=== PATIENT | male | born 1985 | race Hispanic/Latino ===

== ENCOUNTER 2024-08-20 01:30 | Emergency (ER) | payer SELFPAY ==
[2024-08-20] MEDS ORDERED: cloNIDine HCL 0.1 MG TAB ONE (02:10)
[2024-08-20] MEDS ORDERED: LOSARTAN POTASSIUM 50 MG TABLET ONE (02:11)
[2024-08-20 02:44] LABS: Absolute Basophils 0.1 K/uL (0-0.5); Absolute Eosinophils 1.3 K/uL (0-0.5); Absolute Lymphocytes (CBC) 2.5 K/uL (0.7-4.9); Absolute Monocytes 0.8 K/uL (0.1-1.3); Absolute Neutrophil 4.6 K/uL (1.8-8.0); Basophils % 1.1 % (0-1.3); Eosinophils % 13.7 % (0-4.4); Hematocrit 50.1 % (39.6-49.0); Hemoglobin 16.9 g/dL (13.6-17.9); MCH 30.5 pg (27.0-35.0); MCHC 33.8 g/dL (32.0-36.0); MCV 90.1 fL (80-100); MPV 8.2 fL (7.6-11.3); Neutrophils % 49.2 % (41.7-73.7); Nucleated Red Blood Cells % 0.1 % (0-0); PT Prothrombin Time 10.9 SECONDS (10-13.0); Platelets 196 thou/uL (152-406); Protime INR 0.95; RBC Red Blood Cell Count 5.56 M/uL (4.33-5.43); Red Cell Distribution Width 13.3 % (12.1-15.2)
[2024-08-20 02:53] LABS: Albumin 3.7 g/dL (3.4-5.0); Anion Gap 7.5 mEq/L (5.0-15.0); Bilirubin Direct 0.2 mg/dL (0-0.2); Bilirubin Indirect, Calculated 0.6 mg/dL (0.2-0.8); Bilirubin Total 0.8 mg/dL (0.2-1.0); Globulin 3.7 g/dL (2.3-3.5); Potassium 3.5 mEq/L (3.5-5.1); Protein, Total 7.4 g/dL (6.4-8.2); Thyroid Stimulating Hormone 3.16 uIU/mL (0.358-3.740); Troponin High Sensitivity 12.2 pg/mL (<58.9)
--- NOTE | 2024-08-20 04:48 | EDPHYS ---
Physician Documentation [facility] Name: Justin Cerrato Age: 38 yrs Sex: Male : 1985 Arrival Date: 08/20/2024 Time: 01:30 Bed 8 Private MD: ED Physician Jeromy Plummer HPI: 08/20 02:04 This 38 yrs old Male presents to ER via Unassigned with complaints of sp4 Toothache. 04:49 38-year-old male presents with complaint of right upper gingival bleeding of sp4 sudden onset. Patient reports no prior medical problems. Appears to have vitiligo. Historical: - Allergies: 02:12 No Known Allergies; ha1 - PMHx: 02:12 None; ha1 - Immunization history:: Adult Immunizations up to date. - Infectious Disease History:: Denies. - Social history:: Smoking status: Patient denies any tobacco usage or history of. - Family history:: not pertinent. ROS: 04:49 Constitutional: Negative for fever, chills, and weight loss, ENT: Positive for right sp4 upper gingival bleeding 04:49 All other systems are negative, Exam: 04:49 Constitutional: This is a well developed, well nourished patient who is awake, alert, sp4 and in no acute distress. Head/Face: Normocephalic, atraumatic. Eyes: Pupils equal round and reactive to light, extra-ocular motions intact. Lids and lashes normal. Conjunctiva and sclera are not injected. Cornea within normal limits. Periorbital areas with no swelling, redness, or edema. ENT: Nares patent. No nasal discharge, no septal abnormalities noted. Tympanic membranes are normal and external auditory canals are clear. Oropharynx with no redness, swelling, or masses, exudates, or evidence of obstruction, uvula midline. Mucous membranes moist. There is right upper gingival bleeding at the site of a chipped tooth # 4 . Neck: Trachea midline, no thyromegaly or masses palpated, and no cervical lymphadenopathy. Supple, full range of motion without nuchal rigidity, or vertebral point tenderness. Chest/axilla: Normal chest wall appearance and motion. Nontender with no deformity. No lesions are appreciated. Cardiovascular: Regular rate and rhythm with a normal S1 and S2. No gallops, murmurs, or rubs. Normal PMI, no JVD. No pulse deficits. Respiratory: Lungs have equal breath sounds bilaterally, clear to auscultation and percussion. No rales, rhonchi or wheezes noted. No increased work of breathing, no retractions or nasal flaring. Abdomen/GI: Soft, with normal bowel sounds. No distension or tympany. No guarding or rebound. No evidence of tenderness throughout. Back: No spinal tenderness. No costovertebral tenderness. Skin: Warm, dry with normal turgor. Normal color with no rashes, no lesions, and no evidence of cellulitis. MS/ Extremity: Pulses equal, no cyanosis. Neurovascular intact. Full, normal range of motion. Neuro: Awake and alert, GCS 15, oriented to person, place, time, and situation. Cranial nerves II-XII grossly intact. Motor strength 5/5 in all extremities. Sensory grossly intact. Psych: Awake, alert, with orientation to person, place and time. Behavior, mood, and affect are within normal limits 04:49 ECG was reviewed by the Attending Physician. EKG at 0 238 normal sinus rhythm rate sp4 65. Overall normal EKG. Vital Signs: 01:57 BP 207 / 132; Pulse 80; Resp 17 S; Temp 98.1(T); Pulse Ox 100% on R/A; Weight 108.86 ha1 kg; Height 5 ft. 5 in. ; 02:30 BP 172 / 108; Pulse 67; Resp 19 S; Pulse Ox 97% on R/A; ha1 02:59 BP 170 / 114; Pulse 67; Resp 17 S; Pulse Ox 98% on R/A; ha1 03:40 BP 129 / 89; Pulse 71; Resp 18; Pulse Ox 95% ; jj7 05:00 BP 121 / 84; Pulse 64; Resp 18 S; Temp 98; Pulse Ox 98% on R/A; ha1 01:57 Body Mass Index 39.94 (108.86 kg, 165.1 cm) ha1 Jeffrey Coma Score: 04:49 Eye Response: spontaneous(4). Motor Response: obeys commands(6). Verbal Response: sp4 oriented(5). Total: 15. MDM: 02:06 Medical Screening Exam initiated sp4 04:52 Differential diagnosis: dental caries, gingivitis, aphthous ulcers, gingivostomatitis. sp4 Data reviewed: vital signs, nurses notes, lab test result(s), EKG. Consideration of Admission/Observation Escalation of care including admission/observation considered. ED course: Blood pressure improved after medical management, patient advised to take losartan 50 mg daily and close follow-up with primary care physician for blood pressure checks and medication adjustment. Advised also visit with a dentist to fix the chipped tooth #4. 08/20 02:04 Order name: Basic Metabolic Panel; Complete Time: 04:36 sp4 08/20 02:04 Order name: CBC with Diff; Complete Time: 04:36 sp4 08/20 02:04 Order name: LFT's; Complete Time: 04:36 sp4 08/20 02:04 Order name: NT PRO-BNP; Complete Time: 04:36 sp4 08/20 02:04 Order name: PT-INR; Complete Time: 04:36 sp4 08/20 02:04 Order name: Troponin HS; Complete Time: 04:36 sp4 08/20 02:05 Order name: TSH; Complete Time: 04:36 sp4 08/20 02:05 Order name: T4 Free; Complete Time: 04:36 sp4 08/20 02:04 Order name: Cardiac monitoring; Complete Time: 02:24 sp4 08/20 02:04 Order name: EKG - Nurse/Tech; Complete Time: 02:58 sp4 08/20 02:04 Order name: IV Saline Lock; Complete Time: 02:24 sp4 08/20 02:04 Order name: Labs collected and sent; Complete Time: 02:24 sp4 08/20 02:04 Order name: O2 Per Protocol; Complete Time: 02:24 sp4 08/20 02:04 Order name: O2 Sat Monitoring; Complete Time: 02:24 sp4 EC:38 Rate is 65 beats/min. Rhythm is regular, Normal Sinus Rhythm. QRS Colo is Normal. GA sp4 interval is normal. QRS interval is normal. QT interval is normal. No Q waves. T waves are Normal. No ST changes noted. Clinical impression: No evidence of ischemia. Interpreted by me. Reviewed by me. Administered Medications: 02:15 Drug: Losartan PO 100 mg PO once Route: PO; jj7 02:15 Drug: cloNIDine PO 0.3 mg PO once Route: PO; jj7 Disposition Summary: 08/20/24 04:47 Discharge Ordered Problem: new sp4 Symptoms: have improved sp4 Condition: Stable sp4 Diagnosis - Essential (primary) hypertension sp4 - Acute hypertensive urgency, gingival bleeding right upper gingiva sp4 Followup: sp4 - With: Wong King DO - When: 10 - 14 days - Reason: Recheck today's complaints Discharge Instructions: - Discharge Summary Sheet sp4 - Hypertension, Adult, [id number] sp4 Forms: - Patient Portal Instructions sp4 Prescriptions: - losartan 50 mg Oral tablet - take 1 tablet ORAL route daily; 90 tablet; Refills: 0, Product Selection sp4 Permitted Signatures: Dispatcher [employer] EDNasra Calvillo RN RN ha1 Axel Orlando RN RN jj7 Jeromy Plummer MD MD sp4 Corrections: (The following items were deleted from the chart) 02:05 02:05 BASIC METABOLIC PANEL+C.LAB.BRZ ordered. EDMS EDMS 02:05 02:05 CBC+H.LAB.BRZ ordered. EDMS EDMS 02:05 02:05 HEPATIC FUNCTION+C.LAB.BRZ ordered. EDMS EDMS 02:05 02:05 PROBNP+C.LAB.BRZ ordered. EDMS EDMS 02:05 02:05 PROTIME (+INR)+COAG.LAB.BRZ ordered. EDMS EDMS 02:05 02:05 Troponin High Sensitivity+C.LAB.BRZ ordered. EDMS EDMS 02:06 02:06 THYROID STIMULAT HORMONE+C.LAB.BRZ ordered. EDMS EDMS 02:06 02:06 T4 FREE+C.LAB.BRZ ordered. EDMS EDMS
--- NOTE | 2024-08-20 04:48 | ER ---
Nurse's Notes [facility] Name: Justin Cerrato Age: 38 yrs Sex: Male : 1985 Arrival Date: 08/20/2024 Time: 01:30 Bed 8 Private MD: Diagnosis: Essential (primary) hypertension;Acute hypertensive urgency, gingival bleeding right upper gingiva Presentation: 08/20 01:57 Chief complaint: Patient states: SUDDEN ONSET OF GUM BLEEDING. ha1 01:57 Coronavirus screen: Client denies travel out of the [place] in the last 14 days. Ebola ha1 Screen: No symptoms or risks identified at this time. Initial Sepsis Screen: Does the patient meet any 2 criteria? No. Patient's initial sepsis screen is negative. Does the patient have a suspected source of infection? No. Patient's initial sepsis screen is negative. Risk Assessment: Do you want to hurt yourself or someone else? Patient reports no desire to harm self or others. Onset of symptoms was August 20, 2024. 01:57 Method Of Arrival: Ambulatory ha1 01:57 Acuity: NICOLASA 2 ha1 Triage Assessment: 02:12 General: Appears comfortable, Behavior is calm, cooperative. Pain: Denies pain. EENT: ha1 Reports GUM BLEEDING. Neuro: Level of Consciousness is awake, alert, obeys commands, Oriented to person, place, time, situation. Cardiovascular: Capillary refill < 3 seconds Patient's skin is warm and dry. Respiratory: Airway is patent Respiratory effort is even, unlabored, Respiratory pattern is regular, symmetrical. GI: No signs and/or symptoms were reported involving the gastrointestinal system. Abdomen is round obese. Derm: Skin is pink, warm \T\ dry. Musculoskeletal: Circulation, motion, and sensation intact. Range of motion: intact in all extremities. Historical: - Allergies: 02:12 No Known Allergies; ha1 - PMHx: 02:12 None; ha1 - Immunization history:: Adult Immunizations up to date. - Infectious Disease History:: Denies. - Social history:: Smoking status: Patient denies any tobacco usage or history of. - Family history:: not pertinent. Screenin:15 [facility] ED Fall Risk Assessment (Adult) History of falling in the last 3 months, ha1 including since admission No falls in past 3 months (0 pts) Confusion or Disorientation No (0 pts) Intoxicated or Sedated No (0 pts) Impaired Gait No (0 pts) Mobility Assist Device Used No (0 pt) Altered Elimination No (0 pt) Score/Fall Risk Level 0 - 2 = Low Risk Oriented to surroundings, Maintained a safe environment, Educated pt \T\ family on fall prevention, incl call for assistance when getting out of bed, Hourly rounding (assess needs \T\ fall precautionary measures) done. Abuse screen: Denies threats or abuse. Denies injuries from another. Nutritional screening: No deficits noted. Tuberculosis screening: No symptoms or risk factors identified. Assessment: 02:16 Reassessment: SEE TRIAGE ASSESSMENT. ha1 02:59 Reassessment: Patient and/or family updated on plan of care and expected duration. Pain ha1 level reassessed. Patient is alert, oriented x 3, equal unlabored respirations, skin warm/dry/pink. 04:00 Reassessment: Patient and/or family updated on plan of care and expected duration. Pain ha1 level reassessed. Patient is alert, oriented x 3, equal unlabored respirations, skin warm/dry/pink. Patient denies pain at this time. Patient states feeling better. Patient states symptoms have improved. 05:17 Reassessment: Patient and/or family updated on plan of care and expected duration. Pain ha1 level reassessed. Patient is alert, oriented x 3, equal unlabored respirations, skin warm/dry/pink. Patient denies pain at this time. Patient states feeling better. Patient states symptoms have improved. Vital Signs: 01:57 BP 207 / 132; Pulse 80; Resp 17 S; Temp 98.1(T); Pulse Ox 100% on R/A; Weight 108.86 ha1 kg; Height 5 ft. 5 in. ; 02:30 BP 172 / 108; Pulse 67; Resp 19 S; Pulse Ox 97% on R/A; ha1 02:59 BP 170 / 114; Pulse 67; Resp 17 S; Pulse Ox 98% on R/A; ha1 03:40 BP 129 / 89; Pulse 71; Resp 18; Pulse Ox 95% ; jj7 05:00 BP 121 / 84; Pulse 64; Resp 18 S; Temp 98; Pulse Ox 98% on R/A; ha1 01:57 Body Mass Index 39.94 (108.86 kg, 165.1 cm) ha1 Jeffrey Coma Score: 04:49 Eye Response: spontaneous(4). Motor Response: obeys commands(6). Verbal Response: sp4 oriented(5). Total: 15. ED Course: 01:33 Patient arrived in ED. jj6 01:57 Patient has correct armband on for positive identification. Bed in low position. Call ha1 light in reach. Side rails up X 1. Adult w/ patient. 02:04 Jeromy Plummer MD is Attending Physician. sp4 02:12 Triage completed. ha1 02:20 Inserted saline lock: 20 gauge in right antecubital area, using aseptic technique. jj7 Blood collected. Flushed with 10 mL NS. 02:23 T4 Free Sent. jj7 02:23 TSH Sent. jj7 02:24 Basic Metabolic Panel Sent. jj7 02:24 CBC with Diff Sent. jj7 02:24 LFT's Sent. jj7 02:24 NT PRO-BNP Sent. jj7 02:24 PT-INR Sent. jj7 02:24 Troponin HS Sent. jj7 04:46 Wong King DO is Referral Physician. sp4 05:22 No provider procedures requiring assistance completed. IV discontinued, intact, ha1 bleeding controlled, No redness/swelling at site. Pressure dressing applied. Administered Medications: 02:15 Drug: Losartan PO 100 mg PO once Route: PO; jj7 02:15 Drug: cloNIDine PO 0.3 mg PO once Route: PO; jj7 Medication: 03:00 VIS not applicable for this client. ha1 Outcome: 04:47 Discharge ordered by . sp4 05:22 Discharged to home ambulatory, with family, ha1 05:22 Condition: stable 05:22 Discharge instructions given to patient, family, Instructed on discharge instructions, follow up and referral plans. medication usage, Demonstrated understanding of instructions, follow-up care, medications, 05:31 Patient left the ED. ha1 Signatures: Perla Harden jj6 Nasra iDa RN RN ha1 Axel Orlando RN RN jj7 Jeromy Plummer MD MD sp4
[2024-08-20 05:58] VITALS: BP 121/84; TEMP 98; O2SAT 98
--- NOTE | 2024-08-21 12:02 | EKG ---
Test Date: 2024-08-20 Test Time: 02:38:41 Roof Fixer: ZOFIA MEASUREMENT RESULTS: Intervals: Rate: 65 ME: 156 QRSD: 96 QT: 424 QTc: 440 [place]: P: 48 ME: 156 QRS: 34 T: 74 INTERPRETIVE STATEMENTS: Normal sinus rhythm Nonspecific T wave abnormality Abnormal ECG No previous ECG available for comparison Electronically Signed On 08-21-24 11:59:51 CDT by Jamie Wagoner
== END 2024-08-20 05:31 | disposition home or self-care (01) ==
LOC: ER 01:30
DX: I16.0 Hypertensive urgency (principal); K06.8 Other specified disorders of gingiva and edentulous alveolar ridge
CPT/HCPCS: 36415; 80048; 80076; 83880; 84439; 84443; 84484; 85025; 85610; 93005; 99284

== ENCOUNTER 2024-08-24 05:12 | Emergency (ER) | payer SELFPAY ==
[2024-08-24] MEDS ORDERED: TRANEXAMIC ACID 1,000 MG/10 ML VIAL IV ONE (05:37)
[2024-08-24] MEDS ORDERED: LOSARTAN POTASSIUM 50 MG TABLET ONE (06:05)
--- NOTE | 2024-08-24 06:45 | EDPHYS ---
Physician Documentation [facility] Name: Justin Cerrato Age: 38 yrs Sex: Male : 1985 Arrival Date: 08/24/2024 Time: 05:12 Bed 18 Private MD: ED Physician Kirstie Nichols HPI: 08/24 05:36 This 38 yrs old Male presents to ER via Unassigned with complaints of High sw6 Blood Pressure, spitting blood. 05:36 The patient has elevated blood pressure and discovered this Previous ER visit. sw6 Associated signs and symptoms: Pertinent positives: Bleeding from right upper gums, Pertinent negatives: chest pain, headache, lightheadedness. The patient has experienced a previous episode, last week. The patient has been recently seen at the [facility] Emergency Department, this week. The patient presents from home for evaluation for bleeding from his right upper last molar that started about 3 hours prior to arrival. He reports he was at home in bed when the symptoms started. He denies any injury or trauma. He was seen here August 20 for similar complaints. He was started on blood pressure medication at that visit due to being extremely hypertensive upon arrival. He has not followed up with a dentist since he was last seen here. He does not smoke. No history of diabetes or heart disease. He does not take any blood thinners. Since his last visit here on August 20 he has been prescribed losartan 50 mg daily which she has been taking. Here for evaluation.. Historical: - Allergies: 05:55 No Known Allergies; br2 - Immunization history:: Adult Immunizations not up to date. - Infectious Disease History:: Denies. - Social history:: Smoking status: Patient denies any tobacco usage or history of. Patient uses alcohol, occasionally. Patient/guardian denies using street drugs. ROS: 05:36 Constitutional: Negative for fever, chills, and weight loss, Cardiovascular: Negative sw6 for chest pain, palpitations, and edema, Respiratory: Negative for shortness of breath, cough, wheezing, and pleuritic chest pain, Abdomen/GI: Negative for abdominal pain, nausea, vomiting, diarrhea, and constipation, 05:36 ENT: Positive for Bleeding from his gums., 05:36 All other systems are negative, Exam: 05:36 Cardiovascular: Regular rate and rhythm with a normal S1 and S2. No gallops, murmurs, sw6 or rubs. Normal PMI, no JVD. No pulse deficits. Respiratory: Lungs have equal breath sounds bilaterally, clear to auscultation and percussion. No rales, rhonchi or wheezes noted. No increased work of breathing, no retractions or nasal flaring. Abdomen/GI: Soft, non-tender, with normal bowel sounds. No distension or tympany. No guarding or rebound. No evidence of tenderness throughout. MS/ Extremity: Pulses equal, no cyanosis. Neurovascular intact. Full, normal range of motion. Neuro: Awake and alert, GCS 15, oriented to person, place, time, and situation. Cranial nerves II-XII grossly intact. Motor strength 5/5 in all extremities. Sensory grossly intact. Cerebellar exam normal. Normal gait. Psych: Awake, alert, with orientation to person, place and time. Behavior, mood, and affect are within normal limits. 05:36 Constitutional: The patient appears in no acute distress, alert, awake, comfortable, obese, 05:36 ENT: Dental exam: He has poor dentition throughout. His right upper last molar is cracked and does have bleeding from the surrounding gums., Vital Signs: 05:53 BP 201 / 126; Pulse 79; Resp 18; Temp 98.8; Pulse Ox 95% on R/A; Weight 106.59 kg; br2 Height 5 ft. 8 in. ; Pain 0/10; 06:29 BP 181 / 97; Pulse 75; Resp 20 S; Pulse Ox 97% on R/A; br2 06:55 BP 158 / 101; Pulse 72; Resp 18; Pulse Ox 97% on R/A; br2 05:53 Body Mass Index 35.73 (106.59 kg, 172.72 cm) br2 05:53 Pain Scale: Adult br2 MDM: 05:21 Medical Screening Exam initiated 05:36 Differential diagnosis: Uncontrolled hypertension, essential hypertension, dental sw6 trauma, gingivitis. Data reviewed: Laboratory studies from his ER visit here on August 20 which included a CBC, BMP, troponin as well as a TSH.. 06:42 ED course: The patient was doing well here in the ER. He was given the liquid TXA and a sw6 gauze and told to bite on that for 5 to 10 minutes to the right back molar. When that was removed the bleeding was noted to have subsided. He was watched in the ER without any recurrence of his bleeding. He reports he has not seen a dentist in almost 10 years. He was advised that he will need to see dentist within the next several days for definitive dental work. He remained stable here in the ER and is okay for discharge home with PCP follow-up. He will also need to follow-up with his PCP for blood pressure check in 1 week.. Administered Medications: 05:45 Drug: tranexamic acid 1000 mg Topical once {Note: soaked gauze in TXA and applied to vc1 bleed tooth.} Route: Topical; Site: affected area; 06:15 Follow up: Response: No adverse reaction br2 06:00 Drug: Losartan PO 100 mg PO once Route: PO; br2 06:30 Follow up: Response: No adverse reaction br2 Disposition Summary: 08/24/24 06:44 Discharge Ordered Notes: Location: Home sw6 Problem: an ongoing problem sw6 Symptoms: have improved sw6 Condition: Stable sw6 Diagnosis - Essential (primary) hypertension sw6 - gum bleeding sw6 Followup: sw6 - With: Wong King DO - When: 2 - 3 days - Reason: Re-evaluation by your physician Discharge Instructions: - Discharge Summary Sheet sw6 - Hypertension, Adult, [id number] sw6 - Gingivitis, [id number] sw6 Forms: - Medication Reconciliation Form sw6 - Antibiotic Education sw6 - Prescription Opioid Use sw6 - Patient Portal Instructions sw6 - Leadership Thank You Letter sw6 Signatures: Denise Iraheta RN RN vc1 Kirstie Nichols MD MD sw6 Caroline Diaz RN RN br2
--- NOTE | 2024-08-24 06:45 | ER ---
Nurse's Notes [facility] Name: Justin Cerrato Age: 38 yrs Sex: Male : 1985 Arrival Date: 08/24/2024 Time: 05:12 Bed 18 Private MD: Diagnosis: Essential (primary) hypertension;gum bleeding Presentation: 08/24 05:53 Chief complaint: Patient states: PT STATES RIGHT UPPER TOOTH BEGAN BLEEDING AND UNABLE br2 TO GET IT TO STOP, DENIES PAIN. Coronavirus screen: Client denies travel out of the [place] in the last 14 days. Ebola Screen: Patient denies exposure to infectious person. Initial Sepsis Screen: Does the patient meet any 2 criteria? No. Patient's initial sepsis screen is negative. Does the patient have a suspected source of infection? No. Patient's initial sepsis screen is negative. Risk Assessment: Do you want to hurt yourself or someone else? Patient reports no desire to harm self or others. Onset of symptoms was August 24, 2024 at 00:30. 05:53 Method Of Arrival: Ambulatory br2 05:53 Acuity: NICOLASA 4 br2 Triage Assessment: 05:55 General: Appears in no apparent distress. comfortable, Behavior is calm, cooperative. br2 Pain: Denies pain. EENT: Reports RIGHT UPPER TOOTH BLEEDING. Neuro: Level of Consciousness is awake, alert, obeys commands, Oriented to person, place, time, situation. Cardiovascular: Denies chest pain. Respiratory: Airway is patent is compromised Respiratory effort is even, unlabored, Respiratory pattern is regular, symmetrical. GI: No signs and/or symptoms were reported involving the gastrointestinal system. : No signs and/or symptoms were reported regarding the genitourinary system. Derm: No signs and/or symptoms reported regarding the dermatologic system. Musculoskeletal: No signs and/or symptoms reported regarding the musculoskeletal system. Historical: - Allergies: 05:55 No Known Allergies; br2 - Immunization history:: Adult Immunizations not up to date. - Infectious Disease History:: Denies. - Social history:: Smoking status: Patient denies any tobacco usage or history of. Patient uses alcohol, occasionally. Patient/guardian denies using street drugs. Screenin:57 [facility] ED Fall Risk Assessment (Adult) History of falling in the last 3 months, br2 including since admission No falls in past 3 months (0 pts) Confusion or Disorientation No (0 pts) Intoxicated or Sedated No (0 pts) Impaired Gait No (0 pts) Mobility Assist Device Used No (0 pt) Altered Elimination No (0 pt) Score/Fall Risk Level 0 - 2 = Low Risk Oriented to surroundings. Abuse screen: Denies threats or abuse. Denies injuries from another. Nutritional screening: No deficits noted. Tuberculosis screening: No symptoms or risk factors identified. Assessment: 06:30 Reassessment: SEE TRIAGE ASSESSMENT. br2 Vital Signs: 05:53 BP 201 / 126; Pulse 79; Resp 18; Temp 98.8; Pulse Ox 95% on R/A; Weight 106.59 kg; br2 Height 5 ft. 8 in. ; Pain 0/10; 06:29 BP 181 / 97; Pulse 75; Resp 20 S; Pulse Ox 97% on R/A; br2 06:55 BP 158 / 101; Pulse 72; Resp 18; Pulse Ox 97% on R/A; br2 05:53 Body Mass Index 35.73 (106.59 kg, 172.72 cm) br2 05:53 Pain Scale: Adult br2 ED Course: 05:17 Patient arrived in ED. gm2 05:33 Kirstie Nichols MD is Attending Physician. sw6 05:53 Caroline Diaz, GOLDEN is Primary Nurse. br2 05:55 Triage completed. br2 05:55 Arm band placed on. br2 05:57 Bed in low position. Call light in reach. Provided Education on: PLAN OF CARE. br2 06:43 Wong King DO is Referral Physician. sw6 06:57 No provider procedures requiring assistance completed. Patient did not have IV access br2 during this emergency room visit. Administered Medications: 05:45 Drug: tranexamic acid 1000 mg Topical once {Note: soaked gauze in TXA and applied to vc1 bleed tooth.} Route: Topical; Site: affected area; 06:15 Follow up: Response: No adverse reaction br2 06:00 Drug: Losartan PO 100 mg PO once Route: PO; br2 06:30 Follow up: Response: No adverse reaction br2 Outcome: 06:44 Discharge ordered by . sw6 06:57 Discharged to home ambulatory, br2 06:57 Condition: good 06:57 Discharge instructions given to patient, Instructed on discharge instructions, follow up and referral plans. Demonstrated understanding of instructions, follow-up care, 07:07 Patient left the ED. br2 Signatures: Denise Iraheta RN RN vc1 Sunita Chase gm2 Kirstie Nichols MD MD sw6 Caroline Diaz RN RN br2
[2024-08-24 07:30] VITALS: TEMP 98.8
[2024-08-24 07:32] VITALS: O2SAT 97
[2024-08-24 07:33] VITALS: BP 158/101
== END 2024-08-24 07:07 | disposition home or self-care (01) ==
LOC: ER 05:12
DX: I10 Essential (primary) hypertension (principal); K06.8 Other specified disorders of gingiva and edentulous alveolar ridge
CPT/HCPCS: 99283